=== PATIENT | male | born 1995 | race Caucasian/White ===

== ENCOUNTER 2019-08-19 16:25 | Emergency (ER) | payer BC, OTHER ==
[2019-08-19 16:30] VITALS: BP 152/93; PULSE 68; TEMP 98.8; BMI 23.3
[2019-08-19] MEDS ORDERED: FAMOTIDINE 20 MG TABLET PO ONE (18:15)
[2019-08-19] MEDS ORDERED: MAG HYDROX/AL HYDROX/SIMETH 30 ML UNIT-DOSE CUP PO ONE (18:15)
[2019-08-19] MEDS ORDERED: FAMOTIDINE 20 MG TABLET ONE (18:37)
[2019-08-19] MEDS ORDERED: MAG HYDROX/AL HYDROX/SIMETH 30 ML UNIT-DOSE CUP ONE (18:37)
--- NOTE | 2019-08-19 18:49 | PDOC ---
History of Present Illness - General Chief Complaint: Diarrhea Stated Complaint: DIARRHEA Time Seen by Provider: 08/19/19 17:50 History Source: Patient Exam Limitations: Clinical Condition - History of Present Illness Initial Comments: 08/19/19 18:45 Patient with no significant past medical history present with complaint of 5- day history of diarrhea and watery stool after eating leftover [employer] food after 2 days. Patient reporting still having watery stool waiting 5 times in the watery stool and now starting to have brown discoloration of stool. Denies nausea, vomiting, fever, chills, weakness. Patient report has been doing cleansing juicing for the past 3 days. Patient did not take anything for symptoms. Denies recent travel or sick contact Is this a multiple visit Asthma Patient?: No Timing/Duration: other (5 days) Past History - Past Medical History Allergies/Adverse Reactions: Allergies Allergy/AdvReac Type Severity Reaction Status Date / Time ibuprofen Allergy Verified 08/19/19 16:30 Home Medications: Ambulatory Orders Albuterol Sulfate Inhaler - [Ventolin Hfa Inhaler -] 1 puff IH PRN 08/19/19 Albuterol Sulfate [Proair Hfa] 8.5 gm IH PRN 08/19/19 Ciprofloxacin [Cipro (Restricted To Id)] 500 mg PO Q12H #6 tablet 08/19/19 Loperamide HCl [Loperamide] 2 mg PO Q8H PRN #12 tablet 08/19/19 Mag Hydrox/Aluminum Hyd/Simeth [Maalox Advanced Suspension] 30 ml PO Q8H PRN # 200 ml 08/19/19 Asthma: Yes COPD: No - Immunization History Immunization Up to Date: No - Psycho Social/Smoking Cessation Hx Smoking History: Never smoked Have you smoked in the past 12 months: No Information on smoking cessation initiated: No Hx Alcohol Use: No Drug/Substance Use Hx: No Review of Systems - Review of Systems Able to Perform ROS?: Yes Is the patient limited Yoruba proficient: No Constitutional: No: Chills, Fever, Malaise HEENTM: No: Symptoms Reported, See HPI, Eye Pain, Blurred Vision, Tearing, Recent change in vision, Double Vision, Cataracts, Ear Pain, Ocular Prothesis, Ear Discharge, Nose Pain, Nose Congestion, Tinnitus, Nose Bleeding, Hearing Loss , Throat Pain, Throat Swelling, Mouth Pain, Dental Problems, Difficulty Swallowing, Mouth Swelling, Other Respiratory: No: Symptoms reported, See HPI, Cough, Orthopnea, Shortness of Breath, SOB with Exertion, SOB at Rest, Stridor, Wheezing, Productive cough, Hemoptysis, Other ABD/GI: Yes: Symptoms Reported, See HPI, Diarrhea, Abdominal cramping. No: Abdominal Distended, Abd. Pain w/ defecation, Blood Streaked Bowels, Constipated , Difficulty Swallowing, Nausea, Poor Appetite, Poor Fluid Intake, Rectal Bleeding, Vomiting, Indigestion, Tarry Stools, Other : No: Burning, Dysuria, Discharge, Frequency, Urgency Musculoskeletal: No: Symptoms Reported, Back Pain All Other Systems: Reviewed and Negative *Physical Exam - Vital Signs Last Vital Signs Temp Pulse Resp BP Pulse Ox 98.8 F 68 18 152/93 99 08/19/19 16:27 08/19/19 16:27 08/19/19 16:27 08/19/19 16:27 08/19/19 16:27 - Physical Exam 08/19/19 18:48 GENERAL: Well developed, well nourished. Awake and alert. No acute distress. HEENT: Normocephalic, atraumatic. PERRLA, EOMI. No conjunctival pallor. Sclera are non-icteric. Moist mucous membranes. Oropharynx is clear. NECK: Supple. Full ROM. CARDIOVASCULAR: Regular rate and rhythm. No murmurs, rubs, or gallops. Distal pulses are 2+ and symmetric. PULMONARY: No evidence of respiratory distress. Lungs clear to auscultation bilaterally. No wheezing, rales or rhonchi. ABDOMINAL: Soft. Non-tender. Non-distended. No rebound or guarding. No organomegaly. Normoactive bowel sounds. MUSCULOSKELETAL Normal range of motion at all joints. SKIN: Warm and dry. Normal capillary refill. No rashes. No jaundice. No cyanosis NEUROLOGICAL: Alert, awake, appropriate. Gait is normal without ataxia. PSYCHIATRIC: Cooperative. Good eye contact. Appropriate mood General Appearance: Yes: Nourished, Appropriately Dressed. No: Apparent Distress ED Treatment Course - LABORATORY CBC & Chemistry Diagram: 08/19/19 18:00 08/19/19 18:00 Medical Decision Making - Medical Decision Making 08/19/19 18:47 Patient with no significant past medical history present with complaint of 5- day history of diarrhea and watery stool after eating leftover [employer] food after 2 days. Patient reporting still having watery stool waiting 5 times in the watery stool and now starting to have brown discoloration of stool. Denies nausea, vomiting, fever, chills, weakness. Patient report has been doing cleansing juicing for the past 3 days. Patient did not take anything for symptoms. Denies recent travel or sick contact Clinical exam unremarkable with no abdominal tenderness. Patient afebrile now. Symptoms likely viral gastroenteritis versus bacterial gastroenteritis. CBC, CMP labs ordered to rule out bacterial infection. Pepcid 40 mg p.o. Maalox 30 mL p.o. given for diarrhea. Patient given p.o. fluids and able to tolerate p.o. 08/19/19 19:49 CBC and chemistry lab unremarkable. Patient stable for discharge on loperamide as needed for diarrhea MiraLAX with advised to increase fluid intake. Will give patient Cipro antibiotics twice daily for 3 days to hold and take it only if no improvement in another 3 days with GI follow-up Discharge - Discharge Information Problems reviewed: Yes Clinical Impression/Diagnosis: Gastroenteritis Diarrhea Qualifiers: Diarrhea type: unspecified type Qualified Code(s): R19.7 - Diarrhea, unspecified Condition: Stable Disposition: HOME - Admission No - Additional Discharge Information Prescriptions: Ciprofloxacin [Cipro (Restricted To Id)] 500 mg PO Q12H #6 tablet Loperamide HCl [Loperamide] 2 mg PO Q8H PRN #12 tablet PRN Reason: diarrhea Mag Hydrox/Aluminum Hyd/Simeth [Maalox Advanced Suspension] 30 ml PO Q8H PRN # 200 ml PRN Reason: abdominal discomfort - Follow up/Referral Referrals: John Gage MD [Primary Care Provider] - Mao Caruso MD [Staff Physician] - - Patient Discharge Instructions Patient Printed Discharge Instructions: DI for Viral Gastroenteritis -- Adult Additional Instructions: Your blood work is normal. Take prescribed medication as prescribed as needed for diarrhea. Take prescribed Cipro antibiotics if no improvement in 2 days. Follow-up referred GI doctor if no improvement in 4 days - Post Discharge Activity
[2019-08-19 19:17] LABS: BASO % 0.4 % (0-2.0); EOS % 0.6 % (0-4.5); HEMOGLOBIN 16.3 GM/dL (11.7-16.9); LYMPH % 18.5 % (8-40); MCH 30.7 pg (25.7-33.7); MEAN CELL VOLUME 90.5 fl (80-96); MEAN PLT VOLUME 9.2 fl (7.5-11.1); MONO % 7.8 % (3.8-10.2); NEUT % 72.7 % (42.8-82.8); PLATELET COUNT 221 K/MM3 (134-434); RDW 13.7 % (11.9-15.9); WHITE BLOOD COUNT 6.9 K/mm3 (4.0-10.0)
[2019-08-19 19:45] LABS: ALBUMIN 4.3 g/dl (3.4-5.0); BLOOD UREA NITROGEN 11.2 mg/dL (7-18); CALCIUM 9.1 mg/dL (8.5-10.1); CREATININE 0.8 mg/dL (0.55-1.3); TOT PROT 7.2 g/dl (6.4-8.2)
== END 2019-08-19 20:12 | disposition home or self-care (01) ==
LOC: JER 16:25
DX: K52.9 Noninfective gastroenteritis and colitis, unspecified (principal); J45.909 Unspecified asthma, uncomplicated
CPT/HCPCS: 36415; 80053; 85025; 99282-25

== ENCOUNTER 2023-04-10 10:46 | Emergency (ER) | payer BC, OTHER ==
[2023-04-10 10:55] VITALS: BMI 24.3
[2023-04-10] MEDS ORDERED: SODIUM CHLORIDE 1,000 ML IV STA (11:15)
[2023-04-10] MEDS ORDERED: ONDANSETRON 4 MG/2 ML VIAL IVPUSH ONE (11:15)
[2023-04-10] MEDS ORDERED: ACETAMINOPHEN 1000 MG/100 ML BAG IVPB ONE (11:15)
[2023-04-10] MEDS ORDERED: FAMOTIDINE 20 MG/50 ML IVPB 20 MG/50 ML MG IVPB ONE ×2 (11:36→11:53)
[2023-04-10] MEDS ORDERED: ONDANSETRON 4 MG/2 ML VIAL ONE (11:54)
[2023-04-10 12:03] LABS: BASO % 1.1 % (0-2.0); EOS % 0.7 % (0-4.5); HEMATOCRIT 50.3 % (35.4-49); HEMOGLOBIN 17.8 GM/dL (11.7-16.9); LYMPH % 20.9 % (8-40); MCHC 35.3 g/dl (32.0-35.9); MEAN CELL VOLUME 87.9 fl (80-96); MEAN PLT VOLUME 8.6 fl (7.5-11.1); MONO % 11.2 % (3.8-10.2); NEUT % 66.1 % (42.8-82.8); PLATELET COUNT 207 10^3/uL (134-434); RBC 5.72 M/mm3 (4.00-5.60); RDW 13.9 % (11.9-15.9); WHITE BLOOD COUNT 4.7 K/mm3 (4.0-10.0)
[2023-04-10] MEDS ORDERED: ACETAMINOPHEN INJECTION 100 ML IVPB ONE (12:11)
[2023-04-10 12:14] LABS: PH,URINE 5.5 (5.0-8.0); URINE APPEARANCE CLEAR; URINE BILIRUBIN NEGATIVE (NEGATIVE); URINE COLOR DK YELLOW; URINE GLUCOSE (UA) NEGATIVE (NEGATIVE); URINE KETONE 2+ (NEGATIVE); URINE LEUK ESTERASE NEGATIVE (NEGATIVE); URINE NITRITE NEGATIVE (NEGATIVE); URINE PROTEIN NEGATIVE (NEGATIVE)
[2023-04-10 12:22] LABS: POTASSIUM 5.4 mmol/L (3.5-5.1)
[2023-04-10 12:24] LABS: BLOOD UREA NITROGEN 14.5 mg/dL (7-18)
[2023-04-10 12:25] LABS: ALBUMIN 4.2 g/dl (3.4-5.0)
[2023-04-10 12:29] LABS: BILIRUBIN,TOTAL 0.9 mg/dL (0.2-1); TOT PROT 7.9 g/dl (6.4-8.2)
[2023-04-10 12:48] LABS: ACTIVATED PTT 31.9 SECONDS (25.2-36.5); INR 1.02 (0.83-1.09); PROTHROMBIN TIME (PATIENT) 11.8 SEC (9.7-13.0)
[2023-04-10 14:23] VITALS: BP 122/76; PULSE 72; RESP 19; TEMP 97.9
== END 2023-04-10 14:23 | disposition home or self-care (01) ==
LOC: JER 10:46
PROC: 3E033GC Introduction of Other Therapeutic Substance into Peripheral Vein, Percutaneous Approach (ICD-10-PCS; principal; 2023-04-10)
PROC: 3E033NZ Introduction of Analgesics, Hypnotics, Sedatives into Peripheral Vein, Percutaneous Approach (ICD-10-PCS; 2023-04-10)
PROC: 3E033GC Introduction of Other Therapeutic Substance into Peripheral Vein, Percutaneous Approach (ICD-10-PCS; 2023-04-10)
DX: R10.10 Upper abdominal pain, unspecified (principal); R11.0 Nausea; R51.9 Headache, unspecified; K29.00 Acute gastritis without bleeding; Z20.822 Contact with and (suspected) exposure to COVID-19
CPT/HCPCS: 0241U-QW; 36415; 71046-TC-FY; 76705-TC; 80053; 81003; 82150; 83690; 84484; 85025; 85379; 85610; 85730; 87086; 93005; 93010; 99285-25